=== PATIENT | female | born 1975 | race Caucasian/White ===

== ENCOUNTER 2019-12-28 22:14 | Emergency (ER) | payer BC, MEDICAID ==
[2019-12-28] MEDS ORDERED: Sodium Chloride 0.9% 1,000 ML IV ONE (22:18)
[2019-12-28] MEDS ORDERED: Sodium Chloride 0.9% 10 ML Syringe FLUSH PRN ×2 (22:21→22:22)
[2019-12-28] MEDS ORDERED: Iopamidol 755 Mg/ML 100 ML Bottle IV ONE (22:23)
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
[2019-12-28] MEDS ORDERED: Ondansetron 4 MG/2 ML SDV IVPUSH ONE (22:35)
[2019-12-28 23:27] VITALS: BP 120/67; PULSE 80
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
[2019-12-29] MEDS ORDERED: Acetaminophen 325 MG Tab PO ONE (00:28)
== END 2019-12-29 00:55 ==
LOC: FB.ED 22:14
DX: S06.9X1A Unspecified intracranial injury with loss of consciousness of 30 minutes or less, initial encounter (principal); J45.909 Unspecified asthma, uncomplicated; F10.920 Alcohol use, unspecified with intoxication, uncomplicated; Z91.09 Other allergy status, other than to drugs and biological substances; Z88.2 Allergy status to sulfonamides; Z79.899 Other long term (current) drug therapy; Z88.6 Allergy status to analgesic agent; V58.6XXA Passenger in pick-up truck or van injured in noncollision transport accident in traffic accident, initial encounter
CPT/HCPCS: 36415; 70450; 71260; 72125; 74177; 80053; 80305; 80307; 81001; 82803; 83605; 85025; 85610; 85730; 86850; 86900; 86901; 93005; 96374; 99285; A9270; J2405; J7030; Q9967